=== PATIENT | female | born 2000 | race Caucasian/White ===

== ENCOUNTER 2024-02-21 22:28 | Emergency (ER) | payer OTHER ==
[~2024-02-21] VITALS: Ht 157.5 cm; Wt 62.4 kg
[2024-02-21 22:29] VITALS: O2SAT 98
[2024-02-22 02:12] LABS: BASO % 0.5 % (0.0-1.0); EOS # 0.1 10^3/uL (0.0-0.5); EOS % 1.7 % (0.0-3.0); HEMATOCRIT 37.2 % (36.0-47.0); HEMOGLOBIN 13.2 g/dl (12.0-15.5); LYMPH # 1.9 10^3/uL (1.5-5.0); LYMPH % 24.8 % (24.0-44.0); MEAN CORPUSCULAR HEMOGLOBIN 31.4 pg (27.0-33.0); MEAN CORPUSCULAR HGB CONC 35.5 g/dl (32.0-36.5); MEAN CORPUSCULAR VOLUME 88.6 fl (80.0-96.0); MONO # 0.5 10^3/uL (0.0-0.8); NEUTROPHILS % 65.7 % (36.0-66.0); PLATELET COUNT, AUTOMATED 304 10^3/uL (150-450); WHITE BLOOD COUNT 7.7 10^3/uL (4.0-10.0)
[2024-02-22] MEDS: METOCLOPRAMIDE INJ 10MG/2ML VIAL IV ONE (02:13)
[2024-02-22] MEDS: NS 1,000 ML IV ONE (02:13)
[2024-02-22] MEDS: diphenhydrAMINE 50MG/ML VIAL IV ONE (02:13)
[2024-02-22] MEDS: KETOROLAC 30 MG/ML 1ML VIAL IV ONE (02:13)
[2024-02-22 02:27] LABS: ALKALINE PHOSPHATASE 67 U/L (46-116); ALT/SGPT 16 U/L (7.0-40); AST/SGOT 15 U/L (<34); BILIRUBIN,TOTAL 0.8 MG/DL (0.3-1.2); BLOOD UREA NITROGEN 8 MG/DL (9-23); CARBON DIOXIDE LEVEL 25 MMOL/L (20-31); CHLORIDE LEVEL 105 MMOL/L (98-107); CREATININE FOR GFR 0.77 MG/DL (0.55-1.30); GLOMERULAR FILTRATION RATE > 60.0 (>60); GLUCOSE, FASTING 93 MG/DL (60-100); POTASSIUM SERUM 3.9 MMOL/L (3.5-5.1); SODIUM LEVEL 138 MMOL/L (136-145)
[2024-02-22 02:34] VITALS: TEMP 98.8
[2024-02-22 02:36] LABS: HCG, SERUM QUALITATIVE NEGATIVE (NEGATIVE)
[2024-02-22 04:29] VITALS: BP 120/64
== END 2024-02-22 04:32 | disposition home or self-care (01) ==
LOC: M ED 22:28
DX: G43.909 Migraine, unspecified, not intractable, without status migrainosus (principal); B34.8 Other viral infections of unspecified site; R94.31 Abnormal electrocardiogram [ECG] [EKG]; F10.10 Alcohol abuse, uncomplicated
CPT/HCPCS: 70450; 80053; 84703; 85025; 87486; 87581; 87633; 87798; 93005; 96361; 96374; 99284; J1200; J1885; J2765